=== PATIENT | female | born 1995 | race Caucasian/White ===

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

== ENCOUNTER 2018-01-31 09:40 | Emergency (ER) | payer OTHER ==
[2018-01-31 09:47] VITALS: BP 120/83
--- NOTE | 2018-01-31 09:54 | EDPHY ---
H & P Stated Complaint: diagnosed with UTI Wednesday, last night pressure/urgecy/back pain returned Time Seen by Provider: 01/31/18 09:54 - Personal History LMP (Females 10-55): 15-21 Days Ago - Medical/Surgical History Hx Asthma: No Hx Chronic Respiratory Disease: No Hx Diabetes: No Hx Cardiac Disease: No Hx Renal Disease: No Hx Cirrhosis: No Hx Alcoholism: No Hx HIV/AIDS: No Hx Splenectomy or Spleen Trauma: No Other PMH: broken arm, UTIs, renal failure 2016 - Social History Smoking Status: Never smoked Constitutional: Initial Vital Signs Temperature (C) 37 C 01/31/18 09:44 Heart Rate 82 01/31/18 09:44 Respiratory Rate 18 01/31/18 09:44 Blood Pressure 120/83 H 01/31/18 09:44 O2 Sat (%) 100 01/31/18 09:44 O2 Delivery Mode Room Air Allergies/Adverse Reactions: Penicillins Allergy (Verified 01/31/18 09:43) Home Medications: Medication Instructions Recorded NORGESTIMATE-ETHINYL ESTRADIOL 1 tab PO DAILY 10/07/16 [PREVIFEM] Cephalexin [Keflex (RX)] 500 mg PO QID #40 cap 01/31/18 Nitrofurantoin 01/31/18 Ondansetron Odt [Zofran Odt 4 mg 4 mg PO Q4 PRN #10 tab 01/31/18 (RX)] Medical Decision Making ED Course/Re-evaluation: CHIEF COMPLAINT: UTI symptoms, flank pain HISTORY OF PRESENT ILLNESS: The patient is a 22 y/o female arriving with her boyfriend complaining of recurrent UTI symptoms over the last day. She was recently diagnosed with a UTI one week ago and prescribed nitrofurantoin. Apart from mild and intermittent subjective fevers, she seemed to be improving and her urinary symptoms improved. Last night she developed bladder pressure and urgency again and this morning she had bilateral lower back pain. She has associated loss of appetite and nausea. Symptoms feel similar to prior pyelonephritis. She denies vomiting, diarrhea, sore throat, rhinorrhea, dyspnea , cough, or other symptoms. REVIEW OF SYSTEMS: A comprehensive 10 system review of systems is otherwise negative aside from elements mentioned in the history of present illness and medical decision making. PHYSICAL EXAM: HR, BP, O2 Sat, RR. Temp noted General Appearance: Alert, well hydrated, appropriate, and non-toxic appearing. Head: Atraumatic without scalp tenderness or obvious injury Eyes: Pupils equal, round, reactive to light and accommodation, EOMI, no trauma , no injection. Nose: Atraumatic, no rhinorrhea, clear. Throat: Mucus membranes moist. Neck: Supple, nontender, no lymphadenopathy. Respiratory: No retractions, no distress, no wheezes, and no accessory muscle use. Lungs are clear to auscultation bilaterally. Cardiovascular: Regular rate and rhythm, no murmurs, rubs, or gallops. Good capillary refill all extremities. Gastrointestinal: Abdomen is soft, nontender, non-distended, no masses, no rebound, no guarding, no peritoneal signs. Musculoskeletal: Normal active ROM of all extremities, atraumatic. Bilateral CVA tenderness. Neurological: Alert, appropriate, and interactive. The patient has non-focal cranial nerves, motor, sensory, and cerebellar exam. Skin: No rashes, good turgor, no nodules on palpation. Past medical history: UTIs, pyelonephritis Past surgical history: Noncontributory Family history: Noncontributory Social history: Friend at bedside. [employer] student. From [place]. DIFFERENTIAL DIAGNOSIS: The differential diagnosis for the patient's fever included but was not limited to pneumonia, urinary tract infection, viral syndrome, meningitis, and sepsis. MEDICAL DECISION MAKING: This is a normally healthy 22 y/o female who was recently diagnosed with a UTI and returns with recurrent symptoms onset last night. She has bilateral flank tenderness on exam. She is afebrile. Plan for UA and treatment with PO Keflex and Zofran. Patient declined IV. Spoke with patient's [id number] PCP at their request and updated him on patient's condition. He would like UA sensitivities sent to his office if possible. Patient has opted to have CBC and CHEM drawn prior to discharge at her mother's and doctor's request. - Data Points Laboratory Results: 01/31/18 10:10 Urine Color YELLOW Urine Appearance HAZY Urine pH 6.0 (5.0-7.5) Ur Specific [place] 1.009 (1.002-1.030) Urine Protein NEGATIVE (NEGATIVE) Urine Ketones NEGATIVE (NEGATIVE) Urine Blood 1+ H (NEGATIVE) Urine Nitrate NEGATIVE (NEGATIVE) Urine Bilirubin NEGATIVE (NEGATIVE) Urine Urobilinogen NEGATIVE EU EU (0.2-1.0) Ur Leukocyte Esterase NEGATIVE (NEGATIVE) Urine RBC 1-3 /hpf /hpf (0-3) Urine WBC 1-3 /hpf /hpf (0-3) Ur Epithelial Cells 2+ /lpf H /lpf (NONE-1+) Urine Bacteria 2+ /hpf H /hpf (NONE SEEN) Urine Mucus TRACE /lpf /lpf (NONE-1+) Urine Glucose NEGATIVE (NEGATIVE) Medications Given: Discontinued Medications Cephalexin HCl (Keflex) 500 mg PO EDNOW ONE PRN Reason: Protocol Stop: 01/31/18 10:04 Last Admin: 01/31/18 10:25 Dose: 500 mg Departure - Departure Disposition: Home, Routine, Self-Care Clinical Impression: UTI (urinary tract infection) Qualifiers: Urinary tract infection type: acute cystitis Hematuria presence: without hematuria Qualified Code(s): N30.00 - Acute cystitis without hematuria Condition: Good Instructions: Cephalexin (By mouth), Urinary Tract Infection in Women (ED) Additional Instructions: 1. Take Keflex as prescribed for UTI. Be sure to complete the entire prescription even if you feel better. 2. Use Zofran as prescribed when needed for nausea and vomiting. 3. Use Tylenol and ibuprofen as directed on packaging for pain and fever over the next few days. 4. Increase fluid intake. 5. Follow up with your primary care provider for unimproved symptoms over the next 2-3 days. 6. Return for worsening of condition. Call back for urine results in 2 hours. Referrals: HARJIT RICHMOND [Other] - As per Instructions Prescriptions: Cephalexin [Keflex (RX)] 500 mg PO QID #40 cap Ondansetron Odt [Zofran Odt 4 mg (RX)] 4 mg PO Q4 PRN #10 tab PRN Reason: Nausea/Vomiting, Use 1st Report Scribed for: Rafal Prescott Report Scribed by: Natasha Haney Date of Report: 01/31/18 Time of Report: 10:00
[2018-01-31] MEDS ORDERED: CEPHALEXIN 500 MG CAP PO ONE (10:03)
[2018-01-31 10:54] LABS: PLATELET COUNT 222 10^3/uL (150-400)
== END 2018-01-31 10:43 | disposition home or self-care (01) ==
DX: M54.9 Dorsalgia, unspecified (principal); N30.00 Acute cystitis without hematuria; Z87.448 Personal history of other diseases of urinary system; Z87.440 Personal history of urinary (tract) infections